=== PATIENT | female | born 1985 | race Hispanic/Latino ===

== ENCOUNTER 2019-01-30 22:54 | Emergency (ER) | payer MEDICAID ==
[2019-01-30 23:37] LABS: BASOPHILS % (AUTO) 0.5 % (0.0-5.0); EOSINOPHILS % (AUTO) 1.8 % (0.0-8.0); HEMATOCRIT 39.5 % (36-48); LYMPHOCYTES % (AUTO) 22.3 % (21.0-51.0); MEAN CORPUSCULAR HEMOGLOBIN 30.7 pg (27.0-33.0); MEAN CORPUSCULAR HGB CONC 33.6 g/dL (32.0-36.0); MEAN CORPUSCULAR VOLUME 91.2 fL (79-99); MONOCYTES % (AUTO) 8.1 % (3.0-13.0); NEUTROPHILS % (AUTO) 67.3 % (40.0-77.0); NUCLEATED RED BLOOD CELLS 0.1 % (0.0-0.19); PLATELET COUNT (AUTO) 293 K/uL (130-400); RED BLOOD CELL COUNT(AUTO) 4.33 MIL/uL (4.00-5.50); RED CELL DISTRIBUTION WIDTH 13.7 % (11.0-15.5); WHITE BLOOD COUNT (AUTO) 9.9 K/uL (4.8-10.8)
[2019-01-30 23:38] LABS: APPEARANCE,URINE Clear (CLEAR); BILIRUBIN,URINE Negative (NEGATIVE); COLOR,URINE Yellow (YELLOW); GLUCOSE, URINE (UA) Negative (NEGATIVE); KETONES,URINE Negative (NEGATIVE); LEUKOCYTE ESTERASE ,URINE Negative (NEGATIVE); NITRATE,URINE Negative (NEGATIVE); OCCULT BLOOD,URINE Large (NEGATIVE); PH,URINE 5.5 (5.0-8.0); PROTEIN,URINE Negative (NEGATIVE); UROBILINOGEN,URINE 0.2 mg/dL (0.2-1.0)
[2019-01-30 23:52] LABS: BACTERIA,URINE None Seen /HPF (None Seen); SQUAMOUS EPITHELIAL CELL,UR Rare /HPF (0-2); WBC,URINE None Seen /HPF (0-1)
== END 2019-01-31 01:34 | disposition home or self-care (01) ==
LOC: EDH 22:54
DX: O20.0 Threatened abortion (principal); Z3A.10 10 weeks gestation of pregnancy
CPT/HCPCS: 36415; 76817; 81001; 84702; 85025

== ENCOUNTER 2020-07-05 19:12 | Observation (INO) | payer OTHER, MEDICAID ==
[~2020-07-05] VITALS: Ht 154.9 cm; Wt 77.1 kg
[2020-07-05 20:48] VITALS: BP 128/75
[2020-07-05] MEDS ORDERED: PREN1TAB80 PO (20:51)
[2020-07-05 20:52] LABS: BILIRUBIN,URINE Negative (NEGATIVE); COLOR,URINE Yellow (YELLOW); GLUCOSE, URINE (UA) Negative (NEGATIVE); KETONES,URINE Negative (NEGATIVE); LEUKOCYTE ESTERASE ,URINE Negative (NEGATIVE); NITRATE,URINE Positive (NEGATIVE); OCCULT BLOOD,URINE Trace (NEGATIVE); PROTEIN,URINE Trace mg/dL (NEGATIVE)
[2020-07-05 20:55] LABS: APPEARANCE,URINE SLIGHTLY CLOUDY (CLEAR)
[2020-07-05] MEDS ORDERED: LACTATED RINGERS 1000ML IV PRN (21:00)
[2020-07-05 21:13] LABS: BACTERIA,URINE Moderate /HPF (None Seen); RBC,URINE 0-1 /HPF (0-1); WBC,URINE None Seen /HPF (0-1)
[2020-07-05] MEDS ORDERED: CEFTRIAXONE SODIUM 1 GM ONE (21:43)
[2020-07-05] MEDS ORDERED: PROMETHAZINE HCL 25 MG/ML 1ML AMPULE IM PRN (21:45)
[2020-07-05] MEDS ORDERED: MEPERIDINE-PF 50 MG/ML SYG IVP PRN (21:45)
[2020-07-05] MEDS ORDERED: CEFTRIAXONE SODIUM 500 MG VIAL IV ONE (21:45)
[2020-07-05] MEDS ORDERED: ONDANSETRON HCL 4 MG/2 ML 8 MG in SODIUM CHLORIDE 0.9% 50 ML IV PRN (21:45)
[2020-07-05] MEDS: ACETAMINOPHEN-CODEINE 300/30MG TAB PO PRN (21:57)
[2020-07-05 22:12] LABS: AMPHET/METH SCREEN,URINE NEGATIVE (NEGATIVE); BARBITURATE SCREEN, URINE NEGATIVE (NEGATIVE); BENZODIAZEPINES SCREEN,URINE NEGATIVE (NEGATIVE); CANNABINOID SCREEN,URINE NEGATIVE (NEGATIVE); COCAINE SCREEN,URINE NEGATIVE (NEGATIVE); OPIATE SCREEN,URINE NEGATIVE (NEGATIVE); PHENCYCLIDINE SCREEN,URINE NEGATIVE (NEGATIVE)
[2020-07-05] MEDS: LACTATED RINGERS 1000ML 1,000 ML IV SCH ×2 (22:45→23:54)
[2020-07-06] MEDS: ACETAMINOPHEN-CODEINE 300/30MG TAB PO PRN (07:02)
== END 2020-07-06 08:30 | disposition home or self-care (01) ==
LOC: EDH 19:12 → LDH 19:33
PROVIDERS: ADMIT Obstetrics & Gynecology; ATTEND Obstetrics & Gynecology
DX: O21.9 Vomiting of pregnancy, unspecified (principal); R10.2 Pelvic and perineal pain; R35.0 Frequency of micturition; R50.9 Fever, unspecified; R05 Cough; M54.5 Low back pain; Z3A.27 27 weeks gestation of pregnancy
CPT/HCPCS: 80305; 81001; 87088; 87426; 96361 ×3; 96365; 96375; 99284; G0378 ×6; J0696 ×2; J2405; J7120 ×3; 96360; 96372

== ENCOUNTER → 2022-07-17 | Outpatient (CLI) | payer MEDICAID, OTHER ==
[~2022-07-17] MED LIST: IOHEXOL 350 MG/ML 100ML INFUS..BTL IV ONE; PREN1TAB80 PO
== END | disposition home or self-care (01) ==
LOC: RAH 11:13
PROVIDERS: ATTEND Internal Medicine Gastroenterology
DX: N20.0 Calculus of kidney (principal); N13.30 Unspecified hydronephrosis; K31.89 Other diseases of stomach and duodenum; R94.5 Abnormal results of liver function studies; M47.815 Spondylosis without myelopathy or radiculopathy, thoracolumbar region
CPT/HCPCS: 74170; Q9967